=== PATIENT | male | born 1955 | race Hispanic/Latino ===

== ENCOUNTER 2018-06-24 07:48 | Outpatient (CLI) | payer OTHER ==
--- NOTE | 2018-06-24 09:01 | XRay Report ---
LEFT WRIST, 2 VIEWS History: Pain in left wrist. Findings: There is normal bone mineralization. No evidence for fracture, malalignment, ligamentous injury or significant degenerative changes. No bone lesion is identified. The soft tissues are unremarkable. Impression: Left wrist within normal limits.
--- NOTE | 2018-06-24 09:03 | XRay Report ---
LEFT KNEE, 2 VIEWS History: Left knee pain. Findings: Comparison is made to the exam dated 04/08/14. Bone mineralization remains within normal limits. The internally fixated proximal tibia hardware is unchanged. No evidence for loosening or infection. No new fracture or bone lesion. Minimal osteoarthritic changes are identified in the left knee. The soft tissues are unremarkable. No significant change is demonstrated since 2014. Impression: Internally fixated proximal left tibia with no obvious abnormality. Minimal osteoarthritis. No significant change since 04/08/14.
== END 2018-06-24 07:49 | disposition home or self-care (01) ==
LOC: XRAY 07:48
PROVIDERS: ATTEND Internal Medicine
DX: M17.12 Unilateral primary osteoarthritis, left knee (principal); M25.532 Pain in left wrist; I10 Essential (primary) hypertension

== ENCOUNTER 2018-10-16 01:30 | Emergency (ER) | payer SELFPAY ==
--- NOTE | 2018-10-16 02:19 | Emergency Department Report ---
ED General Adult HPI - General Chief complaint: Abdominal Pain Stated complaint: KIDNEY STONES Time Seen by Provider: 10/16/18 02:01 Source: patient Mode of arrival: Ambulatory Limitations: No Limitations - History of Present Illness Initial comments: 63-year-old male past medical history diabetes and hypertension presents with complaint of abdominal pain. Patient's abdominal pain is worse over the past hour. Patient states the pain feels similar to a prior episode of nephrolithiasis that in the past. Patient denies any fever. Patient denies any vomiting. Patient's pain is a 10 out of 10. Severity scale (0 -10): 9 - Related Data Home Medications Medication Instructions Recorded Confirmed Last Taken Allopurinol [Zyloprim] 100 mg PO QDAY 04/05/14 04/10/14 04/04/14 FLUoxetine [PROzac] 20 mg PO QDAY 04/05/14 04/10/14 04/04/14 Meloxicam [Mobic] 15 mg PO DAILY 04/05/14 04/10/14 04/04/14 Chlorpheniramine (Nf) 8 mg PO Q4H PRN 04/10/14 04/10/14 Unknown [Chlor-Trimeton (Nf)] Multivitamin [Multi-Vitamin Daily] 1 each PO QDAY 04/10/14 04/10/14 Unknown Previous Rx's Medication Instructions Recorded Last Taken Type HYDROcodone/APAP 5-325 [[place] 1 each PO Q6HR PRN #12 tablet 04/05/14 Unknown Rx 5-325 mg TAB] Sulfamethoxazole/Trimethoprim 1 each PO Q12H #20 tablet 04/05/14 Unknown Rx [Bactrim DS TAB] Ciprofloxacin HCl [Ciprofloxacin 500 mg PO Q12HR #14 tab 10/16/18 Unknown Rx TAB] Tamsulosin [Flomax] 0.4 mg PO QDAY #30 cap 10/16/18 Unknown Rx traMADol [Ultram] 50 mg PO Q6HR PRN #20 tablet 10/16/18 Unknown Rx Allergies Allergy/AdvReac Type Severity Reaction Status Date / Time Penicillins Allergy Itching Verified 04/05/14 15:26 ED Review of Systems ROS: Stated complaint: KIDNEY STONES Other details as noted in HPI Constitutional: denies: chills, fever Eyes: denies: eye pain, eye discharge, vision change ENT: denies: ear pain, throat pain Respiratory: denies: cough, shortness of breath, wheezing Cardiovascular: denies: chest pain, palpitations Endocrine: no symptoms reported Gastrointestinal: abdominal pain. denies: nausea, diarrhea Genitourinary: denies: urgency, dysuria Musculoskeletal: denies: back pain, joint swelling, arthralgia Skin: denies: rash, lesions Neurological: denies: headache, weakness, paresthesias Psychiatric: denies: anxiety, depression Hematological/Lymphatic: denies: easy bleeding, easy bruising ED Past Medical Hx - Past Medical History Previous Medical History?: Yes Hx Hypertension: Yes (2009) Hx Congestive Heart Failure: No Hx Diabetes: Yes Hx Kidney Stones: Yes Hx Psychiatric Treatment: Yes (anxiety) Hx Asthma: No Hx COPD: No Additional medical history: high cholesterol - Surgical History Past Surgical History?: Yes Additional Surgical History: Left knee fracture - Social History Smoking Status: Never Smoker Substance Use Type: Alcohol - Medications Home Medications: Home Medications Medication Instructions Recorded Confirmed Last Taken Type Allopurinol [Zyloprim] 100 mg PO QDAY 04/05/14 04/10/14 04/04/14 History FLUoxetine [PROzac] 20 mg PO QDAY 04/05/14 04/10/14 04/04/14 History HYDROcodone/APAP 5-325 [[place] 1 each PO Q6HR PRN #12 tablet 04/05/14 04/10/14 Unknown Rx 5-325 mg TAB] Meloxicam [Mobic] 15 mg PO DAILY 04/05/14 04/10/14 04/04/14 History Sulfamethoxazole/Trimethoprim 1 each PO Q12H #20 tablet 04/05/14 04/10/14 Unknown Rx [Bactrim DS TAB] Chlorpheniramine (Nf) 8 mg PO Q4H PRN 04/10/14 04/10/14 Unknown History [Chlor-Trimeton (Nf)] Multivitamin [Multi-Vitamin Daily] 1 each PO QDAY 04/10/14 04/10/14 Unknown History Ciprofloxacin HCl [Ciprofloxacin 500 mg PO Q12HR #14 tab 10/16/18 Unknown Rx TAB] Tamsulosin [Flomax] 0.4 mg PO QDAY #30 cap 10/16/18 Unknown Rx traMADol [Ultram] 50 mg PO Q6HR PRN #20 tablet 10/16/18 Unknown Rx ED Physical Exam - General Limitations: No Limitations General appearance: alert, other (uncomfortable; obvious distress) - Head Head exam: Present: atraumatic, normocephalic - Eye Eye exam: Present: normal appearance - ENT ENT exam: Present: mucous membranes dry - Neck Neck exam: Present: normal inspection - Respiratory Respiratory exam: Present: normal lung sounds bilaterally. Absent: respiratory distress - Cardiovascular Cardiovascular Exam: Present: regular rate, normal rhythm. Absent: systolic murmur, diastolic murmur, rubs, gallop - GI/Abdominal GI/Abdominal exam: Present: soft, distended, tenderness (noted diffusely in abdomen), normal bowel sounds. Absent: guarding, rebound - Rectal Rectal exam: Present: deferred - Extremities Exam Extremities exam: Present: normal inspection - Back Exam Back exam: Present: normal inspection - Neurological Exam Neurological exam: Present: alert, oriented X3 - Psychiatric Psychiatric exam: Present: normal affect, normal mood - Skin Skin exam: Present: warm, dry, intact, normal color. Absent: rash ED Course Vital Signs 10/16/18 10/16/18 10/16/18 01:34 01:56 03:01 Temperature 97.6 F 98 F Pulse Rate 133 H 102 H 111 H Respiratory 18 18 19 Rate Blood Pressure 125/75 120/67 Blood Pressure 138/78 [Left] O2 Sat by Pulse 95 99 98 Oximetry 10/16/18 10/16/18 10/16/18 03:09 03:39 04:01 Temperature Pulse Rate 100 H Respiratory 16 16 14 Rate Blood Pressure 151/93 Blood Pressure [Left] O2 Sat by Pulse 97 Oximetry 10/16/18 05:00 Temperature Pulse Rate 102 H Respiratory 17 Rate Blood Pressure 111/75 Blood Pressure [Left] O2 Sat by Pulse 95 Oximetry ED Medical Decision Making - Lab Data Result diagrams: 10/16/18 02:21 10/16/18 02:21 - Medical Decision Making Patient initially received 4 mg of morphine and 4 mg of Zofran as well. Patient's pain is medically improved after the insertion of a Magallon catheter. Patient had greater than 1000 mL of urine output. Patient also noted to have the presence of bilateral nephrolithiasis which are nonobstructing. Patient to be given follow-up with urology as an outpatient. - Differential Diagnosis urinary retention; nephrolithiasis; dehydration; anemia; UTI Critical care attestation.: If time is entered above; I have spent that time in minutes in the direct care of this critically ill patient, excluding procedure time. ED Disposition Clinical Impression: Urinary retention, Kidney stone, UTI (urinary tract infection) Disposition: TO HOME OR SELFCARE Is pt being admited?: No Does the pt Need Aspirin: No Condition: Stable Instructions: Kidney Stones (ED), Urinary Retention in Men (ED) Prescriptions: Ciprofloxacin HCl [Ciprofloxacin TAB] 500 mg PO Q12HR #14 tab Tamsulosin [Flomax] 0.4 mg PO QDAY #30 cap traMADol [Ultram] 50 mg PO Q6HR PRN #20 tablet PRN Reason: Pain Referrals: PRIMARY CARE, [Primary Care Provider] - 3-5 Days GARFIELD RUIZ MD [Staff Physician] - 3-5 Days Time of Disposition: 05:21 Print Language: SOUTH AFRICAN
[2018-10-16] MEDS ORDERED: ZOFRAN IV ONE (02:27)
[2018-10-16] MEDS ORDERED: NACL 0.9% 1000 ML 1,000 ML IV ONE (02:27)
[2018-10-16] MEDS ORDERED: MORPHINE IV ONE (02:27)
[2018-10-16 02:33] LABS: Basophils # (Auto) 0.1 K/mm3 (0.0-0.1); Basophils % (Auto) 0.6 % (0.0-1.8); Eosinophils # (Auto) 0.1 K/mm3 (0.0-0.4); Eosinophils % (Auto) 1.4 % (0.0-4.3); Hematocrit 45.8 % (35.5-45.6); Hemoglobin 16.1 gm/dl (11.8-15.2); Lymphocytes # (Auto) 2.1 K/mm3 (1.2-5.4); Lymphocytes % (Auto) 24.4 % (13.4-35.0); Mean Corpuscular HGB Conc 35 % (32-34); Mean Corpuscular Hemoglobin 32 pg (28-32); Mean Corpuscular Volume 91 fl (84-94); Monocytes # (Auto) 0.7 K/mm3 (0.0-0.8); Monocytes % (Auto) 7.9 % (0.0-7.3); Platelet Count 250 K/mm3 (140-440); Red Blood Count 5.06 M/mm3 (3.65-5.03); Red Cell Distribution Width 13.1 % (13.2-15.2)
[2018-10-16 02:54] LABS: BUN/Creatinine Ratio 8; Blood Urea Nitrogen 10 mg/dL (9-20); Calcium 8.9 mg/dL (8.4-10.2); Hemolysis Index 8
--- NOTE | 2018-10-16 03:54 | Cat Scan Report ---
CT ABDOMEN AND PELVIS WITHOUT CONTRAST HISTORY: PELVIC PAIN. UNABLE TO URINATE. HISTORY OF KIDNEY STONES.. COMPARISON: CT of the abdomen without contrast from 03/16/2008. TECHNIQUE: Axial, coronal and sagittal CT imaging of the abdomen and pelvis was performed without co ntrast. Lack of intravenous contrast limits evaluation of the vascular and solid organs. All CT sca ns at this location are performed using CT dose reduction for ALARA by means of automated exposure co ntrol. FINDINGS: LOWER CHEST: No significant abnormality. LIVER: No significant abnormality. BILIARY: No significant abnormality. PANCREAS: No significant abnormality. SPLEEN: No significant abnormality. ADRENALS: No significant abnormality. KIDNEYS AND URETERS: There is mild bilateral hydroureteronephrosis without visualization of an obstru ctive ureteral stone. There are multiple bilateral renal stones measuring up to 2 mm on the right and 1 cm on the left. There are probable bilateral renal cysts measuring up to 2 cm along the right lowe r renal pole and 1.6 cm along the left upper renal pole. GI TRACT: No significant abnormality of the stomach, small bowel or colon. Unremarkable appendix. PERITONEUM: No free fluid. No free air. No fluid collection. LYMPH NODES: No significant adenopathy. VASCULATURE: The aorta is normal in caliber with mild generalized atherosclerosis. URINARY BLADDER: The bladder is moderately distended without an additional distinct abnormality. REPRODUCTIVE ORGANS: The prostate gland is enlarged and measures 6.2 x 5.9 cm. ADDITIONAL FINDINGS: None. SKELETAL SYSTEM: No acute abnormality. There are mild degenerative changes of the spine and mild to m oderate degenerative changes of the pelvis. IMPRESSION: 1. Findings consistent with urinary retention, possibly due to enlargement of the prostate gland. 2. Nonobstructive bilateral nephrolithiasis as above. 3. Probable bilateral renal cysts. A nonemergent renal ultrasound would be helpful for further evalua tion. Signer Name: Lalito Guerrero MD Signed: 10/16/2018 3:50 AM Workstation Name: [id number]
[2018-10-16 04:58] LABS: Bacteria,Urine 1+ /HPF (Negative); Bilirubin,Urine NEG (Negative); Blood,Urine LG (Negative); Color,Urine Amber (Yellow); Mucus,Urine FEW /HPF; Protein,Urine <15 mg/dL mg/dL (Negative)
[2018-10-16 05:20] VITALS: BP 111/75
== END 2018-10-16 05:53 | disposition home or self-care (01) ==
LOC: ED 01:30
DX: N39.0 Urinary tract infection, site not specified (principal); N20.0 Calculus of kidney; R33.9 Retention of urine, unspecified; I10 Essential (primary) hypertension; E11.9 Type 2 diabetes mellitus without complications; F41.9 Anxiety disorder, unspecified; E78.00 Pure hypercholesterolemia, unspecified; Z79.899 Other long term (current) drug therapy; Z87.442 Personal history of urinary calculi; Z88.0 Allergy status to penicillin
CPT/HCPCS: 36415; 51702; 74176; 80048; 81001; 85025; 96374; 96375; 99284; J2270; J2405; J7030

== ENCOUNTER 2019-04-29 13:31 | Emergency (ER) | payer SELFPAY ==
[2019-04-29 14:11] LABS: Bilirubin,Urine NEG (Negative); Blood,Urine NEG (Negative); Color,Urine Amber (Yellow); Protein,Urine <15 mg/dL mg/dL (Negative)
--- NOTE | 2019-04-29 14:26 | Emergency Department Report ---
ED Male HPI - General Chief complaint: Urogenital-Male Stated complaint: CAN'T URINATE Time Seen by Provider: 04/29/19 13:55 Source: patient Mode of arrival: Ambulatory Limitations: No Limitations - History of Present Illness Initial comments: Patient is a 63-year-old male with past medical history of hypertension as well as some benign prostatic hypertension who is presenting with decreased ability to urinate. Patient has not voided since last night. He has intense not had some pain in the suprapubic region. He also feels a fullness in this region. Patient's been trying to use the bathroom but as been unsuccessful. He denies nausea vomiting fevers chills or cold or congestion at this time. - Related Data Home Medications Medication Instructions Recorded Confirmed Last Taken FLUoxetine [PROzac] 20 mg PO QDAY 04/05/14 04/10/14 04/04/14 Meloxicam [Mobic] 15 mg PO DAILY 04/05/14 04/10/14 04/04/14 allopurinoL [Zyloprim] 100 mg PO QDAY 04/05/14 04/10/14 04/04/14 Chlorpheniramine (Nf) 8 mg PO Q4H PRN 04/10/14 04/10/14 Unknown [Chlor-Trimeton (Nf)] Multivitamin [Multi-Vitamin Daily] 1 each PO QDAY 04/10/14 04/10/14 Unknown Previous Rx's Medication Instructions Recorded Last Taken Type HYDROcodone/APAP 5-325 [[place] 1 each PO Q6HR PRN #12 tablet 04/05/14 Unknown Rx 5-325 mg TAB] Sulfamethoxazole/Trimethoprim 1 each PO Q12H #20 tablet 04/05/14 Unknown Rx [Bactrim DS TAB] Ciprofloxacin HCl [Ciprofloxacin 500 mg PO Q12HR #14 tab 10/16/18 Unknown Rx TAB] Tamsulosin [Flomax] 0.4 mg PO QDAY #30 cap 10/16/18 Unknown Rx traMADoL [Ultram] 50 mg PO Q6HR PRN #20 tablet 10/16/18 Unknown Rx Ciprofloxacin HCl [Ciprofloxacin 500 mg PO Q12HR #14 tab 04/29/19 Unknown Rx TAB] Tamsulosin [Flomax] 0.4 mg PO QDAY #30 cap 04/29/19 Unknown Rx Allergies Allergy/AdvReac Type Severity Reaction Status Date / Time Penicillins Allergy Itching Verified 04/05/14 15:26 ED Review of Systems ROS: Stated complaint: CAN'T URINATE Other details as noted in HPI Comment: All other systems reviewed and negative ED Past Medical Hx - Past Medical History Previous Medical History?: Yes Hx Hypertension: Yes (2008) Hx Congestive Heart Failure: No Hx Diabetes: Yes Hx Kidney Stones: Yes Hx Psychiatric Treatment: Yes (anxiety) Hx Asthma: No Hx COPD: No Additional medical history: high cholesterol - Surgical History Past Surgical History?: Yes Additional Surgical History: Left knee fracture - Social History Smoking Status: Never Smoker Substance Use Type: Alcohol, Prescribed - Medications Home Medications: Home Medications Medication Instructions Recorded Confirmed Last Taken Type FLUoxetine [PROzac] 20 mg PO QDAY 04/05/14 04/10/14 04/04/14 History HYDROcodone/APAP 5-325 [[place] 1 each PO Q6HR PRN #12 tablet 04/05/14 04/10/14 Unknown Rx 5-325 mg TAB] Meloxicam [Mobic] 15 mg PO DAILY 04/05/14 04/10/14 04/04/14 History Sulfamethoxazole/Trimethoprim 1 each PO Q12H #20 tablet 04/05/14 04/10/14 Unknown Rx [Bactrim DS TAB] allopurinoL [Zyloprim] 100 mg PO QDAY 04/05/14 04/10/14 04/04/14 History Chlorpheniramine (Nf) 8 mg PO Q4H PRN 04/10/14 04/10/14 Unknown History [Chlor-Trimeton (Nf)] Multivitamin [Multi-Vitamin Daily] 1 each PO QDAY 04/10/14 04/10/14 Unknown History Ciprofloxacin HCl [Ciprofloxacin 500 mg PO Q12HR #14 tab 10/16/18 Unknown Rx TAB] Tamsulosin [Flomax] 0.4 mg PO QDAY #30 cap 10/16/18 Unknown Rx traMADoL [Ultram] 50 mg PO Q6HR PRN #20 tablet 10/16/18 Unknown Rx Ciprofloxacin HCl [Ciprofloxacin 500 mg PO Q12HR #14 tab 04/29/19 Unknown Rx TAB] Tamsulosin [Flomax] 0.4 mg PO QDAY #30 cap 04/29/19 Unknown Rx ED Physical Exam - General Limitations: No Limitations General appearance: alert, in no apparent distress - Head Head exam: Present: atraumatic, normocephalic - Eye Eye exam: Present: normal appearance, PERRL, EOMI - ENT ENT exam: Present: mucous membranes moist - Neck Neck exam: Present: normal inspection - Respiratory Respiratory exam: Present: normal lung sounds bilaterally. Absent: respiratory distress, wheezes, rales, rhonchi - Cardiovascular Cardiovascular Exam: Present: regular rate, normal rhythm. Absent: systolic murmur, diastolic murmur, rubs, gallop - GI/Abdominal GI/Abdominal exam: Present: soft, normal bowel sounds. Absent: distended, tenderness, guarding, rebound - Rectal Rectal exam: Present: deferred - Extremities Exam Extremities exam: Present: normal inspection - Back Exam Back exam: Present: normal inspection - Neurological Exam Neurological exam: Present: alert, oriented X3 - Psychiatric Psychiatric exam: Present: normal affect, normal mood - Skin Skin exam: Present: warm, dry, intact, normal color. Absent: rash - Other Other exam information: Of note physical exam was performed after the patient received a Magallon catheter on arrival ED Course Vital Signs 04/29/19 13:34 Temperature 97.6 F Pulse Rate 82 Respiratory 20 Rate Blood Pressure 155/85 O2 Sat by Pulse 94 Oximetry - Reevaluation(s) Reevaluation #1: 04/29/19 14:26 Per my order patient received a Magallon catheter on arrival. The patient is much more calm and cooperative after the Magallon was inserted. Approximately 1 L of clear yellow urine was drained. ED Medical Decision Making - Lab Data Result diagrams: 04/29/19 14:17 Lab Results 04/29/19 04/29/19 Range/Units 13:55 14:17 Sodium 134 L (137-145) mmol/L Potassium 4.0 (3.6-5.0) mmol/L Chloride 98.2 (98-107) mmol/L Carbon Dioxide 20 L (22-30) mmol/L Anion Gap 20 mmol/L BUN 12 (9-20) mg/dL Creatinine 1.0 (0.8-1.5) mg/dL Estimated GFR > 60 ml/min BUN/Creatinine Ratio 12 % Glucose 183 H (75-100) mg/dL Calcium 9.3 (8.4-10.2) mg/dL Urine Color Anh (Yellow) Urine Turbidity Clear (Clear) Urine pH 6.0 (5.0-7.0) Ur Specific [place] 1.008 (1.003-1.030) Urine Protein <15 mg/dl (Negative) mg/dL Urine Glucose (UA) Neg (Negative) mg/dL Urine Ketones Neg (Negative) mg/dL Urine Blood Neg (Negative) Urine Nitrite Pos (Negative) Urine Bilirubin Neg (Negative) Urine Urobilinogen 2.0 (<2.0) mg/dL Ur Leukocyte Esterase Neg (Negative) Urine WBC (Auto) 2.0 (0.0-6.0) /HPF Urine RBC (Auto) 0.0 (0.0-6.0) /HPF - Medical Decision Making Patient is a 63-year-old male who is presenting with acute urinary retention. Magallon catheter was placed which drained approximately liter of urine. Patient is nitrite positive and will be started on antibiotics. A Magallon will be left in place and the patient was given a leg bag. Patient given urology follow-up. Critical care attestation.: If time is entered above; I have spent that time in minutes in the direct care of this critically ill patient, excluding procedure time. ED Disposition Clinical Impression: Acute urinary retention UTI (urinary tract infection) Qualifiers: Urinary tract infection type: acute cystitis Hematuria presence: without hematuria Qualified Code(s): N30.00 - Acute cystitis without hematuria Disposition: - TO HOME OR SELFCARE Is pt being admited?: No Does the pt Need Aspirin: No Condition: Stable Instructions: Urinary Retention in Men (ED) Referrals: KOBE OG MD [Staff Physician] - 3-5 Days Time of Disposition: 15:23
[2019-04-29 15:03] LABS: BUN/Creatinine Ratio 12; Blood Urea Nitrogen 12 mg/dL (9-20); Calcium 9.3 mg/dL (8.4-10.2); Hemolysis Index 5
[2019-04-29 16:30] VITALS: BP 151/88
== END 2019-04-29 16:31 | disposition home or self-care (01) ==
LOC: ED 13:31
DX: R33.8 Other retention of urine (principal); N39.0 Urinary tract infection, site not specified; I10 Essential (primary) hypertension; E11.9 Type 2 diabetes mellitus without complications; F41.9 Anxiety disorder, unspecified; E78.00 Pure hypercholesterolemia, unspecified; Z79.899 Other long term (current) drug therapy; Z88.0 Allergy status to penicillin
CPT/HCPCS: 36415; 51702; 80048; 81001

== ENCOUNTER 2019-05-08 09:19 | Emergency (ER) | payer SELFPAY ==
[2019-05-08 09:28] VITALS: BP 167/93
--- NOTE | 2019-05-08 10:18 | Emergency Department Report ---
ED Male HPI - General Chief complaint: Urogenital-Male Stated complaint: REMOVE CATHER Time Seen by Provider: 05/08/19 10:15 Source: patient Mode of arrival: Ambulatory Limitations: No Limitations - History of Present Illness Initial comments: woodruff placed 04/29 for retention, hx of same would like it removed bc he cant get uro appt until June per the office no complaints today MD Complaint: other (woodruff removal) -: Gradual, days(s) Location: penis Radiation: none Severity: Unable to Determine Severity scale (0 -10): 0 Consistency: now resolved Improves with: none Worsens with: none indwelling catheter denies other symptoms - Related Data Home Medications Medication Instructions Recorded Confirmed Last Taken FLUoxetine [PROzac] 20 mg PO QDAY 04/05/14 04/10/14 04/04/14 Meloxicam [Mobic] 15 mg PO DAILY 04/05/14 04/10/14 04/04/14 allopurinoL [Zyloprim] 100 mg PO QDAY 04/05/14 04/10/14 04/04/14 Chlorpheniramine (Nf) 8 mg PO Q4H PRN 04/10/14 04/10/14 Unknown [Chlor-Trimeton (Nf)] Multivitamin [Multi-Vitamin Daily] 1 each PO QDAY 04/10/14 04/10/14 Unknown Previous Rx's Medication Instructions Recorded Last Taken Type HYDROcodone/APAP 5-325 [[place] 1 each PO Q6HR PRN #12 tablet 04/05/14 Unknown Rx 5-325 mg TAB] Sulfamethoxazole/Trimethoprim 1 each PO Q12H #20 tablet 04/05/14 Unknown Rx [Bactrim DS TAB] Ciprofloxacin HCl [Ciprofloxacin 500 mg PO Q12HR #14 tab 10/16/18 Unknown Rx TAB] Tamsulosin [Flomax] 0.4 mg PO QDAY #30 cap 10/16/18 Unknown Rx traMADoL [Ultram] 50 mg PO Q6HR PRN #20 tablet 10/16/18 Unknown Rx Ciprofloxacin HCl [Ciprofloxacin 500 mg PO Q12HR #14 tab 04/29/19 Unknown Rx TAB] Tamsulosin [Flomax] 0.4 mg PO QDAY #30 cap 04/29/19 Unknown Rx Allergies Allergy/AdvReac Type Severity Reaction Status Date / Time Penicillins Allergy Itching Verified 04/05/14 15:26 ED Review of Systems ROS: Stated complaint: REMOVE CATHER Other details as noted in HPI Comment: All other systems reviewed and negative Genitourinary: as per HPI ED Past Medical Hx - Past Medical History Previous Medical History?: Yes Hx Hypertension: Yes (2008) Hx Congestive Heart Failure: No Hx Diabetes: Yes Hx Kidney Stones: Yes Hx Psychiatric Treatment: Yes (anxiety) Hx Asthma: No Hx COPD: No Additional medical history: high cholesterol - Surgical History Past Surgical History?: Yes Additional Surgical History: Left knee fracture - Social History Smoking Status: Never Smoker Substance Use Type: None - Medications Home Medications: Home Medications Medication Instructions Recorded Confirmed Last Taken Type FLUoxetine [PROzac] 20 mg PO QDAY 04/05/14 04/10/14 04/04/14 History HYDROcodone/APAP 5-325 [[place] 1 each PO Q6HR PRN #12 tablet 04/05/14 04/10/14 Unknown Rx 5-325 mg TAB] Meloxicam [Mobic] 15 mg PO DAILY 04/05/14 04/10/14 04/04/14 History Sulfamethoxazole/Trimethoprim 1 each PO Q12H #20 tablet 04/05/14 04/10/14 Unknown Rx [Bactrim DS TAB] allopurinoL [Zyloprim] 100 mg PO QDAY 04/05/14 04/10/14 04/04/14 History Chlorpheniramine (Nf) 8 mg PO Q4H PRN 04/10/14 04/10/14 Unknown History [Chlor-Trimeton (Nf)] Multivitamin [Multi-Vitamin Daily] 1 each PO QDAY 04/10/14 04/10/14 Unknown History Ciprofloxacin HCl [Ciprofloxacin 500 mg PO Q12HR #14 tab 10/16/18 Unknown Rx TAB] Tamsulosin [Flomax] 0.4 mg PO QDAY #30 cap 10/16/18 Unknown Rx traMADoL [Ultram] 50 mg PO Q6HR PRN #20 tablet 10/16/18 Unknown Rx Ciprofloxacin HCl [Ciprofloxacin 500 mg PO Q12HR #14 tab 04/29/19 Unknown Rx TAB] Tamsulosin [Flomax] 0.4 mg PO QDAY #30 cap 04/29/19 Unknown Rx ED Physical Exam - General Limitations: No Limitations General appearance: alert, in no apparent distress - Head Head exam: Present: atraumatic, normocephalic - Eye Eye exam: Present: normal appearance - ENT ENT exam: Present: normal exam, normal orophraynx - Neck Neck exam: Present: normal inspection, full ROM - Respiratory Respiratory exam: Absent: respiratory distress - GI/Abdominal GI/Abdominal exam: Present: soft. Absent: distended, tenderness - Back Exam Back exam: Absent: CVA tenderness (R), CVA tenderness (L) - Neurological Exam Neurological exam: Present: alert, oriented X3 - Psychiatric Psychiatric exam: Present: normal affect, normal mood - Skin Skin exam: Present: warm, dry, intact ED Course Vital Signs 05/08/19 05/08/19 09:27 10:28 Temperature 98.1 F Pulse Rate 99 H Respiratory 18 18 Rate Blood Pressure 167/93 [Right] O2 Sat by Pulse 95 99 Oximetry ED Medical Decision Making - Medical Decision Making wants woodruff out, no complaints woodruff removed able to urinate advise uro fu return if retention - Differential Diagnosis woodruff mgmt Critical care attestation.: If time is entered above; I have spent that time in minutes in the direct care of this critically ill patient, excluding procedure time. ED Disposition Clinical Impression: Indwelling Woodruff catheter present Disposition: DC-01 TO HOME OR SELFCARE Is pt being admited?: No Condition: Good Instructions: Urinary Retention in Men (ED) Referrals: PRIMARY CARE, [Primary Care Provider] - 3-5 Days GARFIELD RUIZ MD [Staff Physician] - 3-5 Days Time of Disposition: 11:21
== END 2019-05-08 11:23 | disposition home or self-care (01) ==
LOC: ED 09:19
DX: Z46.6 Encounter for fitting and adjustment of urinary device (principal); I10 Essential (primary) hypertension; E11.9 Type 2 diabetes mellitus without complications; F41.9 Anxiety disorder, unspecified; E78.00 Pure hypercholesterolemia, unspecified; Z79.1 Long term (current) use of non-steroidal anti-inflammatories (NSAID); Z79.899 Other long term (current) drug therapy; Z87.442 Personal history of urinary calculi; Z98.890 Other specified postprocedural states; Z88.0 Allergy status to penicillin
CPT/HCPCS: 99281

== ENCOUNTER 2019-11-15 10:56 | Day surgery (SDC) | payer MEDICARE ==
[~2019-11-15 10:56] MED LIST: LACTATED RINGERS 1,000 ML IV SCH; MIDAZOLAM 2 MG/2 ML INJ IV NR
[2019-11-15] MEDS ORDERED: fentaNYL 100 MCG/2 ML INJ IV PRN (12:07)
--- NOTE | 2019-11-15 12:07 | Anesthesia Day of Surgery ---
Anesthesia Day of Surgery - Day of Surgery Patient Examined: Yes Patient H&P Reviewed: Yes Patient is NPO: Yes
--- NOTE | 2019-11-15 12:07 | Anesthesia Consultation ---
Anesthesia Consult and Med Hx Date of service: 11/15/19 - Airway Anesthetic Teeth Evaluation: Good ROM Head & Neck: Adequate Mental/Hyoid Distance: Adequate Mallampati Class: Class II Intubation Access Assessment: Probably Good - Pulmonary Exam CTA: Yes - Cardiac Exam Cardiac Exam: RRR - Pre-Operative Health Status ASA Pre-Surgery Classification: ASA2 Proposed Anesthetic Plan: General - Pulmonary Hx Smoking: No Hx Respiratory Symptoms: No Hx Sleep Apnea: No (AMY PRE SCREEN HIGH RISK) - Cardiovascular System Hx Hypertension: Yes (no meds) Hx Heart Attack/AMI: No Hx Percutaneous Transluminal Coronary Angioplasty (PTCA): No - Central Nervous System CVA: No Hx Psychiatric Problems: Yes (anxiety/depression) - Gastrointestinal Hx Gastroesophageal Reflux Disease: No - Endocrine Hx Renal Disease: No Hx Liver Disease: No Hx Non-Insulin Dependent Diabetes: Yes Hx Thyroid Disease: No - Other Systems Hx Obesity: Yes (BMI 35)
[2019-11-15] MEDS ORDERED: HYDROmorphone 1 MG/1 ML INJ ONE (12:59)
[2019-11-15] MEDS ORDERED: propofoL 200 MG/20 ML VIAL IV ONE (12:59)
[2019-11-15] MEDS ORDERED: LIDOCAINE MPF (2%) 20 MG/1 ML VIAL 5 ML ONE (12:59)
[2019-11-15] MEDS ORDERED: SODIUM CHLORIDE 0.9% 500 ML 500 ML ONE (13:13)
[2019-11-15] MEDS ORDERED: WATER FOR IRRIG STERILE 2000 ML IR ONE (13:16)
[2019-11-15] MEDS ORDERED: SODIUM CHLORIDE 0.9% 500 ML IVPB IRRIGATION ONE (13:16)
[2019-11-15] MEDS ORDERED: ONDANSETRON 4 MG/2 ML INJ ONE (14:15)
--- NOTE | 2019-11-15 14:33 | Operative Report ---
PREOPERATIVE DIAGNOSIS: Bladder outlet obstruction, large prostate. POSTOPERATIVE DIAGNOSIS: Bladder outlet obstruction, large prostate. PROCEDURE: Cystoscopy, resume therapy. SURGEON: Dr. Schneider. ANESTHESIA: General. FINDINGS: This is a gentleman with a large prostate little over 40 grams with bladder outlet obstruction. We offered him a resection. He wanted to try to resume therapy. DESCRIPTION OF PROCEDURE: The patient was brought to the operating room and placed on the operating table. Following induction of anesthesia, he was placed in lithotomy position, prepped and draped in usual sterile fashion. Cystourethroscopy showed trilobar hypertrophy. A small median bar was not that big. The prostatic urethra measured approximately 4-4.5 cm. There were no lesions in the bladder. Resume therapy was carried out 2 on the left, 2 on the right and 1 in the middle lobe. The patient tolerated the procedure well. No complications. A 20-Macanese coude was placed without difficulty. Urine was clear, brought to recovery in stable condition. JOB# [id number] YUMIKO/MICHAEL
--- NOTE | 2019-11-15 14:44 | Post Operative Note ---
Date of procedure: 11/15/19 Pre-op diagnosis: bph Post-op diagnosis: same Findings: trilobar Procedure: miriam tx Anesthesia: GETA Surgeon: GARFIELD RUIZ Estimated blood loss: none Pathology: none Condition: stable Disposition: PACU
--- NOTE | 2019-11-15 14:45 | Discharge Summary ---
Short Stay Discharge Plan Activity: other (no strining ) Weight Bearing Status: Full Weight Bearing Diet: low fat, low cholesterol, low salt Durable Medical Equipment Needed Upon Discharge: other (home with [place]ruff ) Follow up with: ЮЛИЯ PALMER MD [Primary Care Provider] - 7 Days GARFIELD RUIZ MD [Staff Physician] - 7 Days
[2019-11-15 15:54] VITALS: BP 116/67
--- NOTE | 2019-11-15 16:22 | Post Anesthesia Evaluation ---
- Post Anesthesia Evaluation Patient Participated: Yes Airway Patent: Yes Stable Respiratory Function: Yes Nausea/Vomiting: No Temp > 96.8F: Yes Pain Manageable: Yes Adequeate Hydration: Yes Anesthesia Complications: No
== END 2019-11-15 10:57 | disposition home or self-care (01) ==
LOC: OR 10:56
PROVIDERS: ATTEND Urology
DX: N32.89 Other specified disorders of bladder (principal); N40.0 Benign prostatic hyperplasia without lower urinary tract symptoms; E78.00 Pure hypercholesterolemia, unspecified; I10 Essential (primary) hypertension; E66.9 Obesity, unspecified; E11.9 Type 2 diabetes mellitus without complications; F32.9 Major depressive disorder, single episode, unspecified; F41.9 Anxiety disorder, unspecified; Z85.820 Personal history of malignant melanoma of skin; Z68.35 Body mass index [BMI] 35.0-35.9, adult; Z88.8 Allergy status to other drugs, medicaments and biological substances; Z88.0 Allergy status to penicillin; Z88.5 Allergy status to narcotic agent; Z79.899 Other long term (current) drug therapy; Z79.84 Long term (current) use of oral hypoglycemic drugs; Z87.440 Personal history of urinary (tract) infections; Z87.442 Personal history of urinary calculi; Z98.890 Other specified postprocedural states
CPT/HCPCS: 53854; 82962; A4217; J1170; J1956; J2250; J2405; J2704; J7040; J7120

== ENCOUNTER 2020-07-22 18:21 | Emergency (ER) | payer MEDICARE ==
[2020-07-22 18:55] VITALS: BP 155/100
[2020-07-22] MEDS ORDERED: KETOROLAC 30 MG/1 ML INJ IV ONE (19:30)
[2020-07-22] MEDS ORDERED: MORPHINE 4 MG/1 ML INJ IV ONE (19:30)
[2020-07-22] MEDS ORDERED: SODIUM CHLORIDE 0.9% 1000 ML 1,000 ML IV ONE ×2 (19:30→22:21)
[2020-07-22] MEDS ORDERED: ONDANSETRON 4 MG/2 ML INJ IV ONE (19:30)
--- NOTE | 2020-07-22 19:48 | Emergency Department Report ---
<SHEREEN PRINGLE S - Last Filed: 07/23/20 01:46> ED Abdominal Pain HPI - General Chief Complaint: Nausea/Vomiting/Diarrhea Stated Complaint: POSSIBLE KIDNEY STONES - Related Data Home Medications Medication Instructions Recorded Confirmed Last Taken FLUoxetine [PROzac] 20 mg PO QDAY 04/05/14 11/06/19 11/14/19 Meloxicam [Mobic] 7.5 mg PO DAILY 04/05/14 11/15/19 11/11/19 AtorvaSTATin [Lipitor] 40 mg PO QHS 11/06/19 11/06/19 11/14/19 metFORMIN [Glucophage] 500 mg PO BID 11/06/19 11/06/19 11/14/19 Previous Rx's Medication Instructions Recorded Last Taken Type HYDROcodone/APAP 5-325 [Hamilton 1 each PO Q6HR PRN #12 tablet 07/23/20 Unknown Rx 5/325] Ondansetron [Zofran Odt] 4 mg PO Q8HR PRN #20 tab.rapdis 07/23/20 Unknown Rx Tamsulosin [Flomax] 0.4 mg PO QDAY #30 cap 07/23/20 Unknown Rx Allergies Allergy/AdvReac Type Severity Reaction Status Date / Time codeine Allergy Itching Verified 11/06/19 15:47 Penicillins Allergy Itching Verified 04/05/14 15:26 propoxyphene [From Darvon] Allergy Itching Verified 11/15/19 12:06 ED Past Medical Hx - Medications Home Medications: Home Medications Medication Instructions Recorded Confirmed Last Taken Type FLUoxetine [PROzac] 20 mg PO QDAY 04/05/14 11/06/19 11/14/19 History Meloxicam [Mobic] 7.5 mg PO DAILY 04/05/14 11/15/19 11/11/19 History AtorvaSTATin [Lipitor] 40 mg PO QHS 11/06/19 11/06/19 11/14/19 History metFORMIN [Glucophage] 500 mg PO BID 11/06/19 11/06/19 11/14/19 History HYDROcodone/APAP 5-325 [[place] 1 each PO Q6HR PRN #12 tablet 07/23/20 Unknown Rx 5/325] Ondansetron [Zofran Odt] 4 mg PO Q8HR PRN #20 tab.rapdis 04/27/21 Unknown Rx Tamsulosin [Flomax] 0.4 mg PO QDAY #30 cap 07/23/20 Unknown Rx ED Medical Decision Making - Lab Data Result diagrams: 07/22/20 19:52 07/22/20 19:52 - Medical Decision Making I saw this patient in conjunction with SAKINA Saeed. The patient appears to have a history of recurrent kidney stones, BPH, as well as some other comorbidities. He presents with a 1 day history of right-sided flank pain and some nausea with vomiting. I have seen the patient towards the end of his ED course after he has already had imaging, labs, and received treatment. He has a mild leukocytosis of about 15,000 and some mild renal insufficiency with a GFR of 51. CT scan shows 2 5 mm stones at the right UVJ with some hydronephrosis. There are no inflammatory changes seen along the ureter or around the kidney. Urinalysis does not show any urinary tract infection or significant hematuria. At the time of my examination the patient says that his pain is well controlled. The patient only complains of some mild nausea and there has been no further vomiting since receiving antiemetics. The patient presented with some tachycardia initially but the rest of the vital signs are reassuring including being afebrile. I suspect that repeat vitals will show the tachycardia has resolved now the patient's pain is controlled and he has received IV fluid resuscitation. I believe the mild renal insufficiency is due to dehydration from his previous nausea with vomiting. Patient is urinating without any difficulty and CT does not show bilateral hydronephrosis. The patient has good outpatient follow-up with both primary care and urology. At 5 mm, the kidney stones have a high percentage chance of passing and they are already in the distal ureter, almost within the bladder. For all these reasons the patient appears safe for discharge home at this time. He will be given a prescription for pain medication and antiemetics and instructed to follow-up with urology as soon as possible. He will return to the emergency department with any development of fever, return of nausea with vomiting in which he is unable to hydrate himself, decreased urination, or with any acute distress. ED Disposition Clinical Impression: Acute right flank pain, Bilateral renal stones, Hydronephrosis of right kidney, Nausea and vomiting in adult patient Disposition: DC-01 TO HOME OR SELFCARE Is pt being admited?: No Condition: Stable Instructions: Renal Colic, Jsyw-lv-Wops, Kidney Stones, Oqmf-lr-Vsmo, Nausea and Vomiting, Adult, Cpji-qr-Hjyy, Flank Pain, Adult, Jqoh-sf-Rhvj Additional Instructions: Your lab test results were reviewed and showed significant inflammation including elevated white count of 15,100, hyponatremia of 133 mmol/L and slightly elevated creatinine of 1.4 consistent with dehydration. The abdomen pelvis CT scan without contrast showed multiple bilateral kidney stones, and the 2 kidney stones on the right were 5 mm in size with moderate hydronephrosis. Therefore take medications as needed for pain, drink plenty of fluids, follow-up with your urologist Dr. Virk in the next 24 to 48 hours for reevaluation. Return to the ED immediately if your symptoms get worse especially if you develop fever, intractable nausea and vomiting, worsening flank pain. Prescriptions: Tamsulosin [Flomax] 0.4 mg PO QDAY #30 cap HYDROcodone/APAP 5-325 [Hamilton 5/325] 1 each PO Q6HR PRN #12 tablet PRN Reason: Pain Ondansetron [Zofran Odt] 4 mg PO Q8HR PRN #20 tab.rapdis PRN Reason: Nausea Referrals: GARFIELD RUIZ MD [Staff Physician] - 3-5 Days Print Language: GEORGIAN <RASHAD SAEED - Last Filed: 07/23/20 02:10> ED Abdominal Pain HPI - General Source: patient Mode of arrival: Ambulatory Limitations: No Limitations - History of Present Illness Initial Comments: Patient is a 64-year-old white male with a history of hyperlipidemia, hypertension, adr-gtkxyrz-purrmxalj diabetes, anxiety and depression, chronic recurrent kidney stones and who presents to the ED with acute onset persistent severe right flank pain with intractable nausea and vomiting for the last 24 hours, worse in the last 12 hours. Patient states that the right flank pain is sharp, constant, stabbing and persistent since the onset. Patient states that he has had multiple nausea and vomiting episode and that he has not been able to eat anything or drink anything since the onset of the symptoms. Patient states that he believes that his current symptoms are due to kidney stone on his right flank since he has had similar symptoms before. Patient denies dizziness, syncope, chest pain, shortness of breath, diarrhea, fever, chills, headache, lightheadedness, numbness and tingling or weakness of lower extremities bilaterally, testicular pain, dysuria, hematuria or headache. MD Complaint: abdominal pain (right flank pain), flank pain (right flank pain), other (nausea and vomiting) -: Sudden, hour(s) (24) Location: R flank Radiation: R flank Migration to: no migration Severity: severe Severity scale (0 -10): 8 Quality: stabbing, sharp Consistency: constant Improves With: nothing Worsens With: nothing Associated Symptoms: nausea, vomiting, anorexia. denies: diarrhea, fever, chills, constipation, dysuria, hematemesis, hematochezia, melena, hematuria, syncope ED Review of Systems ROS: Stated complaint: POSSIBLE KIDNEY STONES Other details as noted in HPI Constitutional: denies: chills, fever Eyes: denies: eye pain, eye discharge, vision change ENT: denies: ear pain, throat pain Respiratory: denies: cough, shortness of breath, wheezing Cardiovascular: denies: chest pain, palpitations Endocrine: no symptoms reported Gastrointestinal: abdominal pain (right flank pain), nausea, vomiting. denies: diarrhea, constipation, hematemesis, hematochezia Genitourinary: denies: urgency, dysuria, frequency, hematuria Musculoskeletal: back pain (lower). denies: joint swelling, arthralgia Skin: denies: rash, lesions Neurological: denies: headache, weakness, paresthesias Psychiatric: denies: anxiety, depression Hematological/Lymphatic: denies: easy bleeding, easy bruising ED Past Medical Hx - Past Medical History Previous Medical History?: Yes Hx Hypertension: Yes (no meds) Hx Heart Attack/AMI: No Hx Congestive Heart Failure: No Hx Diabetes: Yes Hx Liver Disease: No Hx Renal Disease: No Hx Kidney Stones: Yes Hx Psychiatric Treatment: Yes (anxiety) Hx HIV: No Additional medical history: high cholesterol - Surgical History Additional Surgical History: Left knee fracture - Social History Smoking Status: Never Smoker ED Physical Exam - General Limitations: No Limitations General appearance: alert, in no apparent distress - Head Head exam: Present: atraumatic, normocephalic, normal inspection - Eye Eye exam: Present: normal appearance, PERRL, EOMI Pupils: Present: normal accommodation - ENT ENT exam: Present: normal exam, normal orophraynx, mucous membranes moist, TM's normal bilaterally, normal external ear exam - Neck Neck exam: Present: normal inspection, full ROM. Absent: tenderness, lymphadenopathy - Respiratory Respiratory exam: Present: normal lung sounds bilaterally. Absent: respiratory distress, wheezes, rales, rhonchi, chest wall tenderness, accessory muscle use, decreased breath sounds, prolonged expiratory - Cardiovascular Cardiovascular Exam: Present: normal rhythm, tachycardia, normal heart sounds. Absent: systolic murmur, diastolic murmur, rubs, gallop - GI/Abdominal GI/Abdominal exam: Present: soft, tenderness (Right flank tenderness), normal bowel sounds. Absent: guarding, rebound, rigid, hyperactive bowel sounds, hypoactive bowel sounds - Extremities Exam Extremities exam: Present: normal inspection, full ROM, normal capillary refill - Back Exam Back exam: Present: normal inspection, full ROM, tenderness (Palpable right flank and right lumbosacral paraspinal musculoskeletal tenderness), CVA tenderness (R), muscle spasm, paraspinal tenderness. Absent: CVA tenderness (L), vertebral tenderness - Neurological Exam Neurological exam: Present: alert, oriented X3, CN II-XII intact, normal gait, reflexes normal - Psychiatric Psychiatric exam: Present: normal affect, normal mood - Skin Skin exam: Present: warm, dry, intact, normal color. Absent: rash ED Course Vital Signs 07/22/20 18:54 Temperature 98.5 F Pulse Rate 114 H Respiratory 18 Rate Blood Pressure 155/100 [Right] O2 Sat by Pulse 100 Oximetry ED Medical Decision Making - Lab Data Result diagrams: 07/22/20 19:52 07/22/20 19:52 - Radiology Data Radiology results: report reviewed, image reviewed [facility] [address] [place] [address] Cat Scan Report Signed Patient: KENDRA WOODS MR#: [id number] : 1955 Acct:[id number] Age/Sex: 64 / M ADM Date: 07/22/20 Loc: ED Attending Dr: Ordering Physician: SAKINA SHORT Date of Service: 07/22/20 Procedure(s): CT abdomen pelvis wo con Accession Number(s): [id number] cc: SAKINA SHORT CT ABDOMEN AND PELVIS WITHOUT CONTRAST INDICATION: Right flank pain - Kidney stone r/o. TECHNIQUE: Axial CT images were obtained through the abdomen and pelvis without IV contrast. All CT scans at this location are performed using CT dose reduction for ALARA by means of automated exposure control. COMPARISON: CT abdomen pelvis 10/16/2018 FINDINGS: LOWER CHEST: No significant abnormality. LIVER: No significant abnormality. GALLBLADDER: No significant abnormality. BILE DUCTS: No significant abnormality. PANCREAS: No significant abnormality. SPLEEN: No significant abnormality. ADRENALS: No significant abnormality. RIGHT KIDNEY and URETER: 2 obstructing 5 mm right mid ureteral stones at level of pelvic brim with moderate right hydronephrosis stable 1.4 cm hypodense lesion likely representing cyst. LEFT KIDNEY and URETER: 3 nonobstructing stones left kidney, largest of which measures 1 cm. Several hypodense cysts, largest of which measures 2.2 cm. STOMACH and SMALL BOWEL: No significant abnormality. COLON: No significant abnormality. APPENDIX: No significant abnormality. PERITONEUM: No free fluid. No free air. No fluid collection. LYMPH NODES: No significant adenopathy. AORTA and ARTERIES: No significant abnormality. IVC and VEINS: No significant abnormality. URINARY BLADDER: No significant abnormality. REPRODUCTIVE ORGANS: Enlarged measuring 6.3 cm. ADDITIONAL FINDINGS: None. SKELETAL SYSTEM: No significant abnormality. IMPRESSION: 1. 2 obstructing 5 mm right mid ureteral calculi with moderate right hydronephrosis. 2. Left nephrolithiasis. 3. Stable enlarged prostate. 4. Bilateral renal cysts, unchanged Signer Name: Ronan Keating MD Signed: 07/22/2020 8:31 PM Workstation Name: [id number] Transcribed By: TL Dictated By: Ronan Keating MD Electronically Authenticated By: Ronan Keating MD Signed Date/Time: 07/22/202030 DD/ 25 TD/TT: Print - Medical Decision Making This is a 64-year-old white male with a history of hyperlipidemia, hypertension, vht-jajgtpv-pjrfhimmz diabetes, anxiety and depression, chronic recurrent kidney stones and who presents to the ED with acute onset persistent severe right flank pain with intractable nausea and vomiting for the last 24 hours, worse in the last 12 hours. Patient states that the right flank pain is sharp, constant, stabbing and persistent since the onset. Patient states that he has had multiple nausea and vomiting episode and that he has not been able to eat anything or drink anything since the onset of the symptoms. Patient states that he believes that his current symptoms are due to kidney stone on his right flank since he has had similar symptoms before. In the ED, patient is alert and oriented x3 and is not in distress but appears to be in significant pain, afebrile and tachycardic in triage. Lab test results were reviewed and showed acute leukocytosis of 15,100, acute hyponatremia 133 mmol/L and creatinine of 1.4. Patient received pain medications in the ED, also received antiemetics and 2 L of normal saline IV bolus. Urinalysis is unremarkable with no hematuria. Abdomen pelvis CT scan without contrast showed 2 obstructing 5 mm right mid ureteral calculi with moderate right hydronephrosis. It also showed left nephrolithiasis, stable enlarged prostate and bilateral renal cysts, unchanged. On reevaluation, patient's pain is well controlled with medications. - Differential Diagnosis Kidney stones; UTI; appendicitis; colitis Critical care attestation.: If time is entered above; I have spent that time in minutes in the direct care of this critically ill patient, excluding procedure time. ED Disposition Is pt being admited?: No Does the pt Need Aspirin: No Time of Disposition: 01:32
[2020-07-22 20:14] LABS: Hematocrit 45.3 % (35.5-45.6); Hemoglobin 15.3 gm/dl (11.8-15.2); Mean Corpuscular HGB Conc 34 % (32-34); Mean Corpuscular Volume 92 fl (84-94); Platelet Count 228 K/mm3 (140-440); Red Blood Count 4.91 M/mm3 (3.65-5.03); Red Cell Distribution Width 13.7 % (13.2-15.2)
[2020-07-22 20:29] LABS: Albumin 4.3 g/dL (3.9-5); Calcium 8.8 mg/dL (8.4-10.2)
--- NOTE | 2020-07-22 20:35 | Cat Scan Report ---
CT ABDOMEN AND PELVIS WITHOUT CONTRAST INDICATION: Right flank pain - Kidney stone r/o. TECHNIQUE: Axial CT images were obtained through the abdomen and pelvis without IV contrast. All CT scans at [facility] location are performed using CT dose reduction for ALARA by means of automated exposure control. COMPARISON: CT abdomen pelvis 10/16/2018 FINDINGS: LOWER CHEST: No significant abnormality. LIVER: No significant abnormality. GALLBLADDER: No significant abnormality. BILE DUCTS: No significant abnormality. PANCREAS: No significant abnormality. SPLEEN: No significant abnormality. ADRENALS: No significant abnormality. RIGHT KIDNEY and URETER: 2 obstructing 5 mm right mid ureteral stones at level of pelvic brim with mo derate right hydronephrosis stable 1.4 cm hypodense lesion likely representing cyst. LEFT KIDNEY and URETER: 3 nonobstructing stones left kidney, largest of which measures 1 cm. Several hypodense cysts, largest of which measures 2.2 cm. STOMACH and SMALL BOWEL: No significant abnormality. COLON: No significant abnormality. APPENDIX: No significant abnormality. PERITONEUM: No free fluid. No free air. No fluid collection. LYMPH NODES: No significant adenopathy. AORTA and ARTERIES: No significant abnormality. IVC and VEINS: No significant abnormality. URINARY BLADDER: No significant abnormality. REPRODUCTIVE ORGANS: Enlarged measuring 6.3 cm. ADDITIONAL FINDINGS: None. SKELETAL SYSTEM: No significant abnormality. IMPRESSION: 1. 2 obstructing 5 mm right mid ureteral calculi with moderate right hydronephrosis. 2. Left nephrolithiasis. 3. Stable enlarged prostate. 4. Bilateral renal cysts, unchanged Signer Name: Ronan Keating MD Signed: 07/22/2020 8:31 PM Workstation Name: [id number]
[2020-07-22] MEDS ORDERED: TAMSULOSIN 0.4 MG CAP PO ONE (21:27)
[2020-07-22 22:25] LABS: Total Cells Counted 100
[2020-07-22 22:26] LABS: RBC Morphology Normal
[2020-07-22 22:27] LABS: Large Platelets Rare; Platelet Estimate Consistent w Auto
[2020-07-23 01:10] LABS: Bacteria,Urine 1+ /HPF (Negative); Bilirubin,Urine NEG (Negative); Blood,Urine NEG (Negative); Color,Urine Colorless (Yellow); Protein,Urine <15 mg/dL mg/dL (Negative); Urobilinogen,Urine < 2.0 mg/dL (<2.0)
[2020-07-23] MEDS ORDERED: ONDANSETRON 4 MG ODT TAB PO ONE (01:44)
== END 2020-07-23 01:50 | disposition home or self-care (01) ==
LOC: ED 18:21
DX: N13.30 Unspecified hydronephrosis (principal); N20.0 Calculus of kidney; R11.2 Nausea with vomiting, unspecified; R10.9 Unspecified abdominal pain; I10 Essential (primary) hypertension; E11.9 Type 2 diabetes mellitus without complications; F41.9 Anxiety disorder, unspecified; Z98.890 Other specified postprocedural states; Z79.899 Other long term (current) drug therapy; Z88.0 Allergy status to penicillin; Z88.8 Allergy status to other drugs, medicaments and biological substances
CPT/HCPCS: 36415; 74176; 80053; 81001; 83690; 85007; 85025; 96361; 96374; 96375; 99284; J1885; J2270; J2405; J7030

== ENCOUNTER 2020-08-12 05:56 | Day surgery (SDC) | payer MEDICARE ==
[2020-08-08 13:55] LABS: Basophils # (Auto) 0.1 K/mm3 (0.0-0.1); Basophils % (Auto) 0.6 % (0.0-1.8); Eosinophils # (Auto) 0.3 K/mm3 (0.0-0.4); Eosinophils % (Auto) 2.5 % (0.0-4.3); Hematocrit 39.4 % (35.5-45.6); Hemoglobin 13.4 gm/dl (11.8-15.2); Lymphocytes # (Auto) 1.6 K/mm3 (1.2-5.4); Lymphocytes % (Auto) 13.8 % (13.4-35.0); Mean Corpuscular HGB Conc 34 % (32-34); Mean Corpuscular Volume 91 fl (84-94); Monocytes # (Auto) 0.8 K/mm3 (0.0-0.8); Monocytes % (Auto) 6.7 % (0.0-7.3); Platelet Count 421 K/mm3 (140-440); Red Blood Count 4.31 M/mm3 (3.65-5.03); Red Cell Distribution Width 13.5 % (13.2-15.2)
[2020-08-08 14:16] LABS: Alanine Aminotransferase 20 units/L (7-56); Albumin 3.9 g/dL (3.9-5); BUN/Creatinine Ratio 16; Blood Urea Nitrogen 19 mg/dL (9-20); Calcium 9.1 mg/dL (8.4-10.2); Hemolysis Index 17
--- NOTE | 2020-08-08 15:01 | Anesthesia Consultation ---
Anesthesia Consult and Med Hx Date of service: 08/12/20 - Airway Anesthetic Teeth Evaluation: Good ROM Head & Neck: Adequate Mental/Hyoid Distance: Adequate Mallampati Class: Class II Intubation Access Assessment: Probably Good (previous LMA 4) - Pulmonary Exam CTA: Yes (good air entry bilaterally without wheezes or rhonchi) - Cardiac Exam Cardiac Exam: No Murmur - Pre-Operative Health Status ASA Pre-Surgery Classification: ASA3 Proposed Anesthetic Plan: General - Pulmonary Hx Smoking: No Hx Respiratory Symptoms: No - Cardiovascular System Hx Hypertension: Yes (no antihypertensives) Hx Heart Attack/AMI: No Hx Percutaneous Transluminal Coronary Angioplasty (PTCA): No Hx Cardia Arrhythmia: No - Central Nervous System CVA: No Hx Psychiatric Problems: Yes (anxiety/depression) - Endocrine Hx Renal Disease: Yes (hydronephrosis 2/2 renal stone) Hx Liver Disease: No Hx Non-Insulin Dependent Diabetes: Yes Hx Thyroid Disease: No - Other Systems Hx Obesity: Yes (BMI 32) - Additional Comments Anesthesia Medical History Comments: Patient was recently hospitalized 07/25/20 to 07/30/20 with sepsis 2/2 pyelonephritis. Discharge summary from outside hospital reviewed. There was concern for PNA based on findings of atelectesis vs possible infiltrate on CT abd/pelv but this was later ruled out as cause of sepsis given normal CXR and lack of significant respiratory symptoms. He had cystoscopy with stent placement under [place] during the hospitalization after which the patient states he had no respiratory or other anesthetic complications. He was discharged on PO linezolid which he is still taking. He complains of continued flank pain and was found to have sinus tach on EKG today. He has no new respiratory symptoms. Discussed with patient the risk of intra/post op respiratory complications possibly requiring inpatient admission. He verbalized understanding.
[~2020-08-12 05:56] MED LIST changes: -LACTATED RINGERS 1,000 ML IV SCH; -MIDAZOLAM 2 MG/2 ML INJ IV NR; +MIDAZOLAM 2 MG/2 ML INJ IV SCH; +SODIUM CHLORIDE 0.9% 1000 ML 1,000 ML IV SCH
[2020-08-12] MEDS ORDERED: ALBUTEROL 2.5 MG/3 ML NEBU IH PRN (06:00)
[2020-08-12] MEDS ORDERED: LACTATED RINGERS 1,000 ML IV SCH (06:45)
[2020-08-12] MEDS ORDERED: LACTATED RINGERS 1,000 ML ONE (06:57)
--- NOTE | 2020-08-12 07:02 | Anesthesia Day of Surgery ---
Anesthesia Day of Surgery - Day of Surgery Patient Examined: Yes Patient H&P Reviewed: Yes Patient is NPO: Yes
[2020-08-12] MEDS ORDERED: HYDROmorphone 1 MG/1 ML INJ ONE (07:13)
[2020-08-12] MEDS ORDERED: LIDOCAINE MPF (2%) 20 MG/1 ML VIAL 5 ML ONE (07:13)
[2020-08-12] MEDS ORDERED: propofoL 200 MG/20 ML VIAL IV ONE (07:13)
[2020-08-12] MEDS ORDERED: IOHEXOL 300 MG/ML 50ML IV ONE (08:27)
[2020-08-12] MEDS ORDERED: ONDANSETRON 4 MG/2 ML INJ ONE (08:40)
[2020-08-12] MEDS ORDERED: KETOROLAC 30 MG/1 ML INJ ONE (08:40)
--- NOTE | 2020-08-12 08:56 | Operative Report ---
DATE OF SURGERY: 08/12/2020 PREOPERATIVE DIAGNOSIS: Right mid to lower ureteral stone. POSTOPERATIVE DIAGNOSIS: Right mid to lower ureteral stone. PROCEDURE PERFORMED: Cystoscopy, stent exchange, right ureteroscopy, laser and extraction of stone. SURGEON: Roland Schneider M.D. ANESTHESIA: General. FINDINGS: This is a gentleman, who was seen and had severe pain. He had to be transferred to another hospital for insurance reasons and stent was placed. He now presents for stone extraction. He was given antibiotics at the other hospital for a few days. DESCRIPTION OF PROCEDURE: Patient was brought to the operating room and placed on the operating table. Following induction of anesthesia, placed in lithotomy position, prepped and draped in usual sterile fashion. Cystourethroscopy revealed a stent, which was extracted. A wire coiled up through the stent. We placed a second wire and ureteroscopy over the second wire revealed a stone. It was fragmented with the laser and then extracted. The patient tolerated the procedure well. No significant complications. A double-J coiled as the retrograde showed the double-J to be in excellent position. The patient tolerated the procedure well and brought to recovery room in stable condition. TID: [id number] RECEIPT: [id number] YUMIKO/JOVANA
--- NOTE | 2020-08-12 08:56 | Discharge Summary ---
Short Stay Discharge Plan Activity: other Weight Bearing Status: Full Weight Bearing Diet: low fat, low cholesterol Special Instructions: other (inc fluids ) Durable Medical Equipment Needed Upon Discharge: other (j stent ) Follow up with: ЮЛИЯ PALMER MD [Primary Care Provider] - 7 Days
--- NOTE | 2020-08-12 08:57 | Post Operative Note ---
Date of procedure: 08/12/20 Pre-op diagnosis: r ureteral stone Post-op diagnosis: same Findings: as above Procedure: cysto karen stoen extr Anesthesia: GETA Surgeon: GARFIELD RUIZ Estimated blood loss: none Pathology: list (stone) Specimen disposition: given to patient/family Condition: stable Disposition: PACU
[2020-08-12] MEDS ORDERED: HYDROmorphone 1 MG/1 ML INJ IV PRN ×2 (09:21)
[2020-08-12] MEDS ORDERED: ONDANSETRON 4 MG/2 ML INJ IV PRN (09:21)
[2020-08-12 10:11] VITALS: BP 121/76
--- NOTE | 2020-08-12 15:07 | Post Anesthesia Evaluation ---
- Post Anesthesia Evaluation Patient Participated: Yes Airway Patent: Yes Stable Respiratory Function: Yes Nausea/Vomiting: No Temp > 96.8F: Yes Pain Manageable: Yes Adequeate Hydration: Yes Anesthesia Complications: No Block Receding Appropriately: Not Applicable Patient on Ventilator: No
--- NOTE | 2020-08-12 16:09 | Fluoroscopy Report ---
FLUOROSCOPY RETROGRADE UROGRAPHY HISTORY: Right ureteral stone FINDINGS: 1 minute 21 seconds of fluoroscopy time was provided by radiology during right ureteral sto ne removal and right ureteral stent placement by urology. 4 fluoroscopic images are presented. Please correlate with the procedural report as needed. Signer Name: Edgardo Rivas Jr, MD Signed: 08/12/2020 4:03 PM Workstation Name: [id number]
--- NOTE | 2020-08-13 17:22 | Electrocardiograph Report ---
[facility] Test Date: 2020-08-08 Test Time: 14:10:22 Pat Name: KENDRA WOODS Department: Room: Gender: M Client Liaison: SILVA : 1955 Requested By: MIR MORGAN Order Number: [id number] Reading MD: Micheal Cowart Measurements Intervals [place] Rate: 105 P: 74 SD: 125 QRS: 6 QRSD: 98 T: 37 QT: 347 QTc: 460 Interpretive Statements Sinus tachycardia No previous ECG available for comparison Electronically Signed On 08-13-2020 17:21:52 EDT by Micheal Cowart
== END 2020-08-12 10:00 | disposition home or self-care (01) ==
LOC: OR 05:56
PROVIDERS: ATTEND Urology
DX: N13.2 Hydronephrosis with renal and ureteral calculous obstruction (principal); Z20.822 Contact with and (suspected) exposure to COVID-19; E78.00 Pure hypercholesterolemia, unspecified; I10 Essential (primary) hypertension; E66.9 Obesity, unspecified; M10.9 Gout, unspecified; E11.9 Type 2 diabetes mellitus without complications; F32.9 Major depressive disorder, single episode, unspecified; F41.9 Anxiety disorder, unspecified; Z88.5 Allergy status to narcotic agent; Z88.0 Allergy status to penicillin; Z88.8 Allergy status to other drugs, medicaments and biological substances; Z79.899 Other long term (current) drug therapy; Z79.84 Long term (current) use of oral hypoglycemic drugs; Z87.01 Personal history of pneumonia (recurrent); Z87.440 Personal history of urinary (tract) infections; Z98.890 Other specified postprocedural states; Z68.32 Body mass index [BMI] 32.0-32.9, adult
CPT/HCPCS: 36415; 52356; 74420; 80053; 82962; 85025; 93005; C1758; C1769; C2617; J1170; J1885; J1956; J2405; J2704; J7120; Q9967; U0003